=== PATIENT | female | born 1975 | race Caucasian/White ===

== ENCOUNTER 2023-02-03 11:12 | Emergency (ER) | payer OTHER ==
[2023-02-03 12:52] LABS: CORONAVIRUS COVID-19 NAA NEGATIVE (NEGATIVE); INFLUENZA A NAA NEGATIVE (NEGATIVE); INFLUENZA B NAA NEGATIVE (NEGATIVE); RESPIRATORY SYNCYTIAL VIR NAA NEGATIVE (NEGATIVE)
== END 2023-02-03 13:10 | disposition home or self-care (01) ==
LOC: MW.ED 11:12
DX: J02.9 Acute pharyngitis, unspecified (principal); Z20.822 Contact with and (suspected) exposure to COVID-19
CPT/HCPCS: 0241U; 87651; 99283

== ENCOUNTER 2023-11-22 10:50 | Emergency (ER) | payer BC, OTHER ==
[2023-11-22] MEDS: fentaNYL 50 MCG/ML SDV IVPUSH STA ×2 (11:16→12:24)
== END 2023-11-22 13:03 | disposition home or self-care (01) ==
LOC: MW.ED 10:50
DX: S82.432A Displaced oblique fracture of shaft of left fibula, initial encounter for closed fracture (principal); Z90.710 Acquired absence of both cervix and uterus; Z79.899 Other long term (current) drug therapy; Z75.8 Other problems related to medical facilities and other health care; X50.1XXA Overexertion from prolonged static or awkward postures, initial encounter; W10.8XXA Fall (on) (from) other stairs and steps, initial encounter; Y93.01 Activity, walking, marching and hiking
CPT/HCPCS: 29515; 73590; 73610; 73630; 96374; 96376; 99284; J3010

== ENCOUNTER 2023-11-28 07:23 | Day surgery (SDC) | payer BC ==
[~2023-11-28 07:23] MED LIST: Albuterol 0.083% 2.5 MG/3 ML Neb Soln NEB PRN; Bupivacaine 0.5%/EPINEPHrine 1:200,000 30 ML SDV ONE; HYDROmorphone 1 MG/ML Syringe IVPUSH PRN; Metoclopramide 10 MG/2 ML SDV IVPUSH PRN; Morphine 2 MG/ML SYRINGE IVPUSH PRN; Naloxone 0.4 MG/ML SDV IVPUSH PRN; Ondansetron 4 MG/2 ML SDV IVPUSH PRN; Phenylephrine HCl In 0.9% NaCl 1 MG/10 ML Syringe IVPUSH PRN; droPERidol 5 MG/2 ML SDV IVPUSH PRN; fentaNYL 50 MCG/ML SDV IVPUSH PRN
[2023-11-28] MEDS ORDERED: Propofol 200 MG/20 ML SDV ONE (07:30)
[2023-11-28] MEDS ORDERED: propofoL 50 ML ONE ×2 (07:30→09:34)
[2023-11-28] MEDS ORDERED: Ketamine HCL/NACL, ISO-OSM 50 MG/5 ML Syringe ONE ×2 (07:31→08:59)
[2023-11-28] MEDS ORDERED: fentaNYL 100 MCG/2 ML SDV ONE (07:31)
[2023-11-28] MEDS ORDERED: Famotidine 20 MG/2 ML SDV ONE (07:46)
[2023-11-28] MEDS ORDERED: Ropivacaine 0.5% 5 MG/ML 30 ML SDV ONE (07:46)
[2023-11-28] MEDS: Scopalamine 1mg/3day Transdermal Patch TOP ONE (07:55)
[2023-11-28] MEDS ORDERED: Lidocaine 1% 20 ML MDV ONE (07:56)
[2023-11-28] MEDS ORDERED: ceFAZolin 2 GM in Sodium Chloride 0.9% 50 ML IV ONE (08:00)
[2023-11-28] MEDS: Lactated Ringers 1,000 ML IV SCH (08:07)
[2023-11-28] MEDS ORDERED: ceFAZolin 2 GM Vial ONE (08:34)
[2023-11-28] MEDS ORDERED: fentaNYL 250 MCG/5 ML SDV ONE (08:41)
[2023-11-28] MEDS ORDERED: Ondansetron 4 MG/2 ML SDV ONE (09:17)
[2023-11-28] MEDS ORDERED: Dexamethasone 4 MG/ML 5 ML MDV ONE (09:17)
[2023-11-28] MEDS ORDERED: Ketorolac 30 MG/ML SDV ONE (09:17)
[2023-11-28] MEDS ORDERED: ePHEDrine 50 MG/ML SDV ONE (09:17)
[2023-11-28] MEDS ORDERED: HYDROmorphone 2 MG/ML Syringe ONE (10:15)
== END 2023-11-28 12:50 | disposition home or self-care (01) ==
LOC: MW.SDS 07:23
PROVIDERS: ATTEND Orthopaedic Surgery
DX: S82.842A Displaced bimalleolar fracture of left lower leg, initial encounter for closed fracture (principal); W18.30XA Fall on same level, unspecified, initial encounter
CPT/HCPCS: 27814; 27829; A9270; C1713; C1769; J0131; J0690; J1100; J1171; J1885; J2405; J2704; J2795; J3010; J3490; J7120

== ENCOUNTER 2024-03-12 08:57 | Day surgery (SDC) | payer BC ==
[~2024-03-12 08:57] MED LIST changes: -Bupivacaine 0.5%/EPINEPHrine 1:200,000 30 ML SDV ONE; +ceFAZolin 2 GM in Sodium Chloride 0.9% 50 ML IV ONE; -droPERidol 5 MG/2 ML SDV IVPUSH PRN
[2024-03-12] MEDS: Lactated Ringers 1,000 ML IV SCH (09:30)
[2024-03-12] MEDS ORDERED: fentaNYL 250 MCG/5 ML SDV ONE (10:07)
[2024-03-12] MEDS ORDERED: Propofol 200 MG/20 ML SDV ONE (10:07)
[2024-03-12] MEDS ORDERED: propofoL 500 MG/50 ML 50 ML ONE (10:07)
[2024-03-12] MEDS ORDERED: Bupivacaine 0.25% 30 ML SDV ONE (10:16)
[2024-03-12] MEDS ORDERED: Dexamethasone 4 MG/ML 5 ML MDV ONE (10:21)
[2024-03-12] MEDS ORDERED: Ondansetron 4 MG/2 ML SDV ONE (10:21)
[2024-03-12] MEDS ORDERED: Ketorolac 30 MG/ML SDV ONE (10:21)
[2024-03-12] MEDS ORDERED: Famotidine 20 MG/2 ML SDV ONE (10:23)
[2024-03-12] MEDS ORDERED: ceFAZolin 2 GM Vial ONE (10:41)
== END 2024-03-12 12:15 | disposition home or self-care (01) ==
LOC: MW.SDS 08:57
PROVIDERS: ATTEND Orthopaedic Surgery
DX: Z47.2 Encounter for removal of internal fixation device (principal); I10 Essential (primary) hypertension; E78.5 Hyperlipidemia, unspecified; E66.01 Morbid (severe) obesity due to excess calories; F32.A Depression, unspecified; F41.9 Anxiety disorder, unspecified; Z87.891 Personal history of nicotine dependence; Z79.899 Other long term (current) drug therapy
CPT/HCPCS: 20680; 76000; J0131; J0665; J0690; J1100; J1885; J2405; J2704; J3010; J7120